=== PATIENT | female | born 1945 | race Caucasian/White ===

== ENCOUNTER 2017-07-22 04:15 | Outpatient (CLI) | payer MEDICARE, MEDICAID ==
[~2017-07-22 04:15] MED LIST: DULO-31 PO; FENT1PAT12 TP; FURO40TA4 PO; LISI-604 PO
== END 2017-07-22 23:59 | disposition home or self-care (01) ==
LOC: DIABETIC 04:15
PROVIDERS: ATTEND Surgery
DX: Z71.3 Dietary counseling and surveillance (principal); E66.01 Morbid (severe) obesity due to excess calories; Z68.43 Body mass index [BMI] 50.0-59.9, adult
CPT/HCPCS: 97802

== ENCOUNTER 2017-08-20 04:55 | Outpatient (CLI) | payer MEDICARE, MEDICAID | END 2017-08-20 23:59 | disposition home or self-care (01) | LOC: DIABETIC 04:55 | PROVIDERS: ATTEND Surgery | DX: E11.9 Type 2 diabetes mellitus without complications (principal) | CPT/HCPCS: G0108 ==

== ENCOUNTER 2017-10-15 02:01 | Outpatient (CLI) | payer MEDICARE, MEDICAID | END 2017-10-15 23:59 | disposition home or self-care (01) | LOC: DIABETIC 02:01 | PROVIDERS: ATTEND Surgery | DX: Z71.3 Dietary counseling and surveillance (principal); E66.01 Morbid (severe) obesity due to excess calories; K21.9 Gastro-esophageal reflux disease without esophagitis; I10 Essential (primary) hypertension; G47.30 Sleep apnea, unspecified; Z79.899 Other long term (current) drug therapy | CPT/HCPCS: 97802 ==

== ENCOUNTER 2017-11-12 02:01 | Outpatient (CLI) | payer MEDICARE, MEDICAID | END 2017-11-12 23:59 | disposition home or self-care (01) | LOC: DIABETIC 02:01 | PROVIDERS: ATTEND Surgery | DX: E66.01 Morbid (severe) obesity due to excess calories (principal); I10 Essential (primary) hypertension; K21.9 Gastro-esophageal reflux disease without esophagitis; G47.30 Sleep apnea, unspecified; Z96.651 Presence of right artificial knee joint; Z96.642 Presence of left artificial hip joint | CPT/HCPCS: 97802 ==

== ENCOUNTER 2017-12-10 03:21 | Outpatient (CLI) | payer MEDICARE, MEDICAID | END 2017-12-10 23:59 | disposition home or self-care (01) | LOC: DIABETIC 03:21 | PROVIDERS: ATTEND Surgery | DX: Z71.3 Dietary counseling and surveillance (principal); E66.01 Morbid (severe) obesity due to excess calories; I10 Essential (primary) hypertension; G47.30 Sleep apnea, unspecified; K21.9 Gastro-esophageal reflux disease without esophagitis; Z96.651 Presence of right artificial knee joint; Z96.642 Presence of left artificial hip joint | CPT/HCPCS: 97802 ==

== ENCOUNTER 2018-01-02 01:46 | Outpatient (CLI) | payer MEDICARE, MEDICAID | END 2018-01-02 23:59 | disposition home or self-care (01) | LOC: DIABETIC 01:46 | PROVIDERS: ATTEND Surgery | DX: Z71.3 Dietary counseling and surveillance (principal); E66.01 Morbid (severe) obesity due to excess calories; Z68.39 Body mass index [BMI] 39.0-39.9, adult; I10 Essential (primary) hypertension; G47.30 Sleep apnea, unspecified; K21.9 Gastro-esophageal reflux disease without esophagitis; Z96.642 Presence of left artificial hip joint; Z96.651 Presence of right artificial knee joint | CPT/HCPCS: 97802 ==

== ENCOUNTER 2018-01-30 01:34 | Outpatient (CLI) | payer MEDICARE, MEDICAID | END 2018-01-30 23:59 | disposition home or self-care (01) | LOC: DIABETIC 01:34 | PROVIDERS: ATTEND Surgery | DX: Z71.3 Dietary counseling and surveillance (principal); E66.01 Morbid (severe) obesity due to excess calories; I10 Essential (primary) hypertension; K21.9 Gastro-esophageal reflux disease without esophagitis; G47.30 Sleep apnea, unspecified; Z96.651 Presence of right artificial knee joint; Z96.642 Presence of left artificial hip joint; Z88.5 Allergy status to narcotic agent; Z88.2 Allergy status to sulfonamides | CPT/HCPCS: 97802 ==

== ENCOUNTER 2018-02-25 00:24 | Outpatient (CLI) | payer MEDICARE, MEDICAID | END 2018-02-25 23:59 | disposition home or self-care (01) | LOC: DIABETIC 00:24 | PROVIDERS: ATTEND Surgery | DX: Z71.3 Dietary counseling and surveillance (principal); Z68.39 Body mass index [BMI] 39.0-39.9, adult; E66.01 Morbid (severe) obesity due to excess calories; I10 Essential (primary) hypertension; K21.9 Gastro-esophageal reflux disease without esophagitis; G47.39 Other sleep apnea; Z96.651 Presence of right artificial knee joint; Z96.642 Presence of left artificial hip joint; Z98.890 Other specified postprocedural states; Z88.5 Allergy status to narcotic agent; Z88.8 Allergy status to other drugs, medicaments and biological substances | CPT/HCPCS: 97802 ==

== ENCOUNTER 2018-04-10 01:53 | Outpatient (CLI) | payer MEDICARE, MEDICAID | END 2018-04-10 23:59 | disposition home or self-care (01) | LOC: DIABETIC 01:53 | PROVIDERS: ATTEND Surgery | DX: Z71.3 Dietary counseling and surveillance (principal); E66.01 Morbid (severe) obesity due to excess calories; I10 Essential (primary) hypertension; G47.30 Sleep apnea, unspecified; K21.9 Gastro-esophageal reflux disease without esophagitis | CPT/HCPCS: 97802 ==